=== PATIENT | female | born 1965 | race Caucasian/White ===

== ENCOUNTER 2023-08-23 07:43 | Day surgery (SDC) | payer OTHER ==
[~2023-08-23] VITALS: Ht 154.9 cm; Wt 59.0 kg
[2023-08-23] MEDS ORDERED: MEPERIDINE 100 MG INJ. 100 MG/ML VIAL ONE (07:52)
[2023-08-23] MEDS ORDERED: MIDAZOLAM HCL 5 MG/5 ML VIAL ONE (07:52)
[2023-08-23] MEDS ORDERED: BENZOCAINE 20% 0.5mL UD SPRAY MM ONE (07:52)
[2023-08-23 08:30] VITALS: O2SAT 99
[2023-08-23 15:15] VITALS: BP_SYST 103; PULSE 72; RESP 14
== END 2023-08-23 10:25 | disposition home or self-care (01) ==
LOC: SDS 07:43 → SMU 07:43 → SDS 10:25
PROVIDERS: ATTEND Student in an Organized Health Care Education/Training Program
DX: Z12.11 Encounter for screening for malignant neoplasm of colon (principal); K57.30 Diverticulosis of large intestine without perforation or abscess without bleeding; K64.8 Other hemorrhoids; K29.50 Unspecified chronic gastritis without bleeding; Z86.010 Personal history of colon polyps; Z79.899 Other long term (current) drug therapy
CPT/HCPCS: 45378; 43239; 99152; 88305; 88312; 88313; 99153; G0378; J2250; J2175